=== PATIENT | male | born 1945 | race Caucasian/White ===

== ENCOUNTER 2018-04-20 17:27 | Inpatient (IN) | payer OTHER ==
--- NOTE | 2018-04-20 17:55 | EDPHY ---
HPI/HX/ROS/PE/MDM Narrative: CHIEF COMPLAINT: "I feel terrible," jaundice, ascites HPI: The patient is a 72 y/o male arriving with his complaining of abdominal discomfort and ascites onset today. History comes primarily from patient's . She reports he began to feel ill on March 27, 3.5 weeks ago. He was evaluated for this and ultimately MRI imaging at [facility] showed 2 liver masses. Specialists there suspected a bile duct tumor and performed an ERCP for further evaluation on Monday, 3 days ago. 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 They performed a sphincterotomy but not place a stent at that time. For the last six days he's appeared jaundiced to his and has had an intermittent fever. Today he began complaining of abdominal discomfort. She describes his abdomen as hard and distended. She called their specialist and was advised to go to the ED for further evaluation. She also mentions he's had difficulty eating for the past two weeks and was recently treated for sinusitis and otitis with Augmentin. REVIEW OF SYSTEMS: A comprehensive 10 system review of systems is otherwise negative aside from elements mentioned in the history of present illness. PMH: Liver masses, primary sclerosing cholangitis SOCIAL HISTORY: at bedside. Lives in [place]. Liver/GI specialists at [facility]. PHYSICAL EXAM: General:Patient is alert, in no acute distress. Mild jaundice. ENT: Scleral icterus, otherwise eyes are normal to inspection. ENT inspection normal. Neck: Normal inspection. Full range of motion. Respiratory:No respiratory distress. Breath sounds normal bilaterally. Cardiovascular: Regular rate and rhythm. Strong peripheral pulses. Normal cap refill. Abdomen:The abdomen is distended, nontender to palpation. There are no peritoneal signs. Back: Normal to inspection. No tenderness to palpation. Skin: Normal color. No rash. Warm and dry. Extremities: Normal appearance. Full range of motion. Neuro: Oriented x3. Normal motor function. Normal sensory function. ED Course: This is a 72 y/o male with recently diagnosed liver pathology likely primary sclerosing cholangitis and possible cholangiocarcinoma who presents with abdominal discomfort and distention that began today. He is jaundiced with scleral icterus on exam. His abdomen is distended, but nontender. Plan for IV, labs. LFTs significantly elevated. The 12 lead EKG was interpreted by myself. See hard copy and/or "tracemaster" electronic copy for interpretation. 190: Consulted with Dr. Larry, [facility] commissioner of officials at liver transplant center. He recommends admission either at our facility or there's depending on patient preference. Reassessed patient and discussed work up. He would like to be admitted here. Spoke with hospitalist service. Dr. Goff accepts admission. - Data Points Laboratory Results: Laboratory Results 04/20/18 17:47 04/20/18 17:47 04/20/18 04/20/18 17:47 17:47 WBC 13.25 10^3/uL H 10^3/uL (3.80-9.50) RBC 4.77 10^6/uL 10^6/uL (4.40-6.38) Hgb 14.3 g/dL g/dL (13.7-17.5) Hct 39.9 % L % (40.0-51.0) MCV 83.6 fL fL (81.5-99.8) MCH 30.0 pg pg (27.9-34.1) MCHC 35.8 g/dL g/dL (32.4-36.7) RDW 16.8 % H % (11.5-15.2) Plt Count 213 10^3/uL 10^3/uL (150-400) MPV 13.8 fL H fL (8.7-11.7) Neut % (Auto) 78.7 % H % (39.3-74.2) Lymph % (Auto) 10.3 % L % (15.0-45.0) Gaines % (Auto) 8.7 % % (4.5-13.0) Eos % (Auto) 1.2 % % (0.6-7.6) Baso % (Auto) 0.3 % % (0.3-1.7) Nucleat RBC Rel Count 0.0 % % (0.0-0.2) Absolute Neuts (auto) 10.42 10^3/uL H 10^3/uL (1.70-6.50) Absolute Lymphs (auto) 1.37 10^3/uL 10^3/uL (1.00-3.00) Absolute Monos (auto) 1.15 10^3/uL H 10^3/uL (0.30-0.80) Absolute Eos (auto) 0.16 10^3/uL 10^3/uL (0.03-0.40) Absolute Basos (auto) 0.04 10^3/uL 10^3/uL (0.02-0.10) Absolute Nucleated RBC 0.00 10^3/uL 10^3/uL (0-0.01) Immature Gran % 0.8 % % (0.0-1.1) Immature Gran # 0.11 10^3/uL H 10^3/uL (0.00-0.10) Sodium 134 mEq/L L mEq/L (135-145) Potassium 4.6 mEq/L mEq/L (3.5-5.2) Chloride 104 mEq/L mEq/L (97-110) Carbon Dioxide 21 mEq/l L mEq/l (22-31) Anion Gap 9 mEq/L mEq/L (6-14) BUN 28 mg/dL H mg/dL (7-23) Creatinine 1.3 mg/dL mg/dL (0.7-1.3) Estimated GFR 55 Glucose 107 mg/dL H mg/dL (70-100) Calcium 9.4 mg/dL mg/dL (8.5-10.4) Total Bilirubin 17.2 mg/dL H mg/dL (0.1-1.4) Conjugated Bilirubin 14.9 mg/dL H mg/dL (0.0-0.5) Unconjugated Bilirubin 2.3 mg/dL H mg/dL (0.0-1.1) Icterus Index 13 AST 355 IU/L H IU/L (17-59) ALT 262 IU/L H IU/L (21-72) Alkaline Phosphatase > 1500 IU/L H IU/L (38-126) Total Protein 6.5 g/dL g/dL (6.3-8.2) Albumin 2.9 g/dL L g/dL (3.5-5.0) General Time Seen by Provider: 04/20/18 17:47 Initial Vital Signs: Initial Vital Signs Temperature (C) 36.5 C 04/20/18 17:33 Heart Rate 87 04/20/18 17:33 Respiratory Rate 18 04/20/18 17:33 Blood Pressure 129/82 H 04/20/18 17:33 O2 Sat (%) 96 04/20/18 17:33 O2 Delivery Mode Room Air Allergies/Adverse Reactions: amoxicillin [From Augmentin] Allergy (Verified 04/20/18 17:31) clavulanic acid [From Augmentin] Allergy (Verified 04/20/18 17:31) meloxicam Allergy (Verified 04/20/18 17:31) niacin Allergy (Verified 04/20/18 17:31) Sulfa (Sulfonamide Antibiotics) Allergy (Verified 04/20/18 17:31) Home Medications: Medication Instructions Recorded Allopurinol 04/20/18 Aspirin 81mg (*) 04/20/18 Carvedilol 04/20/18 Lipitor 04/20/18 Prednisone 04/20/18 Testosterone 04/20/18 Departure - Departure Disposition: [facility] Inpatient Acute Clinical Impression: Jaundice Ascites Qualifiers: Ascites type: other type Qualified Code(s): R18.8 - Other ascites Condition: Fair Referrals: RAMON CORMIER [Other] - As per Instructions Report Scribed for: Chaz Recinos Report Scribed by: Nita Vallejo Date of Report: 04/20/18 Time of Report: 18:01 Physician Review and Approval Statement: Portions of this note were transcribed by an ED scribe. I personally performed the history, physical exam, and medical decision making; and confirm the accuracy of the information in the transcribed note.
[2018-04-20 19:04] LABS: PLATELET COUNT 213 10^3/uL (150-400)
[2018-04-20 19:41] LABS: INR 1.26 (0.83-1.16)
--- NOTE | 2018-04-20 20:45 | CPEKG ---
Test Reason : OPEN Blood Pressure : / mmHG Vent. Rate : 083 BPM Atrial Rate : 083 BPM P-R Int : 128 ms QRS Dur : 110 ms QT Int : 413 ms P-R-T Axes : 066 -24 -16 degrees QTc Int : 486 ms Sinus rhythm Multiform ventricular premature complexes Probable left atrial enlargement Inferior infarct, age indeterminate Confirmed by Chaz Recinos ([id number]) on 04/20/2018 8:45:03 PM Referred By: Chaz Recinos Confirmed By:Chaz Recinos
[2018-04-20] MEDS ORDERED: ACETAMINOPHEN 325 MG TAB PO PRN (21:01)
[2018-04-20] MEDS ORDERED: ONDANSETRON DISINTEGRATING 4 MG TAB PO PRN (21:01)
[2018-04-20] MEDS ORDERED: ONDANSETRON 4 MG/2 ML VIAL IVP PRN (21:01)
[2018-04-20] MEDS ORDERED: ERTAPENEM 1 GM in NS 100 ML IV SCH (21:15)
[2018-04-20] MEDS ORDERED: traZODone 50 MG TAB PO PRN (21:58)
--- NOTE | 2018-04-20 22:01 | GHP ---
DATE OF ADMISSION: 04/20/2018 CHIEF COMPLAINT: Possible ascites. HISTORY OF PRESENT ILLNESS: This is a 72-year-old male who was in his usual state of health until end of February. At that time, he was diagnosed with a sinus infection. He was started on Augment in. Sinus issues did not improve and then early March had some blood work, which did show elevated liver function tests. At that time, he was not jaundiced. He was sent to [facility] for further workup. This workup has all been done outpatient, included MRI on April 09, which showed liver lesions. He had increasing bilirubin, which about 10 days ago was at like 4. At that point, he developed more j aundice. 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 Biopsies were don e at that time. He then went home to [facility] where he lives. However the last day or so, he has espitia d increasing abdominal distention which he thinks may be ascites. His jaundice has also worsened. H phan has poor p.o. intake. He has been having fevers for the last 3 weeks to 100.4, and some chills. T his has not changed. He does not really have a lot in the way of abdominal pain, but does feel a lit tle bit uncomfortable in his abdomen. He has been sleeping more, but not particularly encephalopathi c. No bleeding. REVIEW OF SYSTEMS: A 10-point review of systems was obtained and negative. PAST MEDICAL HISTORY: 1. Coronary artery disease without stenting. 2. Hypertension, medication. 3. Gout. Interestingly, he had been on prednisone for gout prophylaxis for some time and has been w eaning that off currently. 4. Hypogonadism. MEDICATIONS: Reviewed. SOCIAL HISTORY: No smoking or alcohol. FAMILY HISTORY: Family history is only positive for coronary artery disease. PHYSICAL EXAMINATION: VITAL SIGNS: Afebrile, blood pressure is 135/75, heart rate 85, oxygen satura tion is 92% on room air. GENERAL: The patient is well developed, no apparent distress. HEENT: Sig nificantly icteric sclerae. NECK: Supple. No thyromegaly. LUNGS: Good effort. Clear to ausculta tion bilaterally. CARDIOVASCULAR: Regular rate and rhythm. No murmurs or gallops. ABDOMEN: Posit rojas bowel sounds, soft. There is a little bit of abdominal distention and enlarged liver, but I am n ot sure this is ascites. EXTREMITIES: No clubbing, cyanosis. Trace edema. SKIN: Without rash. D ry, intact. NEUROLOGIC: Alert and oriented x3. No asterixis. PSYCH: Normal affect. LABS: White count slightly elevated at 13, platelets are 14. INR 1.26. Sodium 134, total bilirubin is 17.2, conjugated 14.9, unconjugated 2.3, AST , ALT 262, and alkaline phosphatase over 1 500. ASSESSMENT: This is a 72-year-old male with worsening liver disease possibly due to primary sclerosi ng cholangitis and/or cholangiocarcinoma being seen at [facility] primarily presenting with increasing abdom inal distention, possible ascites. PLAN: 1. Possible ascites. Will get abdominal ultrasound today. 2. Worsening liver disease. This is pretty concerning. His bilirubin has gone up so high in the st week or 2. He did have an ERCP done 3 days ago. He does have elevated white blood cell count and some low-grade fevers. Will empirically cover with Invanz, however the best course of action is for him to be transferred to [facility] tomorrow. His could not take him today because she does not drive in the dark, and they do not want to go in an ambulance due to cost. Thus, we will keep overnight. I probably would not do any procedures even if he does have ascites. I will talk to [facility], GI or [facility] tomorrow and try to get him transferred at that time. I am going to check an am onia level and again, the ultrasound. 3. History of coronary artery disease. This is remote. I am going to hold Lipitor though because o f his elevated liver function tests. 4. History of gout. Will continue will low-dose prednisone. /[id number]/MODL
[2018-04-20] MEDS: CARVEDILOL 25 MG TAB PO SCH (23:29)
--- NOTE | 2018-04-21 00:56 | HOSPPROG ---
Hospitalist Progress Note Assessment/Plan: Hospitalist night float note Notified by RN regarding ultrasound result including portal vein thrombus. Discussed findings with the patient and he states no previous diagnosis of such. Further discussion with patient regarding recommendation to initiate anticoagulation with heparin drip in light of these new finding. Patient declines at this time would prefer to coordinate with [facility]. Patient states he has plans for his to drive him to [facility] tomorrow. At this time patient denies any current fevers, worsening abdominal pain, chest pain, shortness of breath and prefers to go back to sleep. Objective: Vital Signs Temp Pulse Resp BP Pulse Ox 37.1 C 88 14 112/61 94 04/20/18 23:45 04/20/18 23:45 04/20/18 23:45 04/20/18 23:45 04/20/18 23:45 PT 16.0 SEC (12.0-15.0) H 04/20/18 19:32 INR 1.26 (0.83-1.16) H 04/20/18 19:32 ICD10 Worksheet Patient Problems: Problems Problem Status Onset Ascites Acute Jaundice Acute
--- NOTE | 2018-04-21 06:50 | PDMN ---
Medical Necessity Medical necessity: Pt meets inpt criteria per MD order and [facility] M-[id number], Liver Disease Complications. 72 y/o presenting w/abd distention, abd discomfort, jaundice, and recent fevers, admitted w/ascites, worsening liver disease, and elevated WBC count and fever- concerning for infected ascites-Invanz started. Abd US shows cirrhosis w/L hepatic lobe mass and possible portal vein thrombus, and ascites. 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
[2018-04-21] MEDS ORDERED: predniSONE 1 MG TAB PO SCH (09:00)
[2018-04-21] MEDS: CARVEDILOL 25 MG TAB PO SCH (09:05)
--- NOTE | 2018-04-21 09:53 | PDDCSUM ---
Discharge Summary Discharge Summary: DISCHARGE DIAGNOSES: *Acute Onset of Ascites *Fever as outpatient; suspicion for possible SBP *Anorexia with early satiety *Acute Hepatic Failure with bilirubin 17 *Known liver lesions suspicious for malignancy *suspected bile duct lesion based on ERCP done elsewhere *Cirrrhosis PROCEDURES: Abdominal Ultrasound HOSPITAL COURSE SUMMARY: The patient has a history of jaundice and liver lesion identified radiologically. He has had an ERCP done by Dr Abreu at [facility] recently with biopsies which are currently pending. He came to our ER last night with abdominal distension he felt was ascites, and complains of early satiety and a very mild vague abdominal discomfort. He has had some ongoing low grade fever at home some a while as well. Upon admission the patient stated he was wishing to be admitted to [facility] in [place] with Dr Abreu's team, but he and his were not comfortable with driving at night and he did not want to go by ambulance. Here he has ascites on exam, slightly firm but no significant tenderness no rebound, highest fever so far 37.7. Labs show bilirubin up to 17 from recent ? 4. He is not septic. He did accept an abdominal US which shows ascites, a liver lesion suspicous for hepatoma, biliary dilation with poor visualization of distal common duct, cirrhosis. There is also suspicion for portal vein thrombus with "cavernous transformation" (this was not done with full Doppler imaging) The patient was prescribed antibiotics for suspicion of possible biliary infection or Spontaneous Bacterial Peritionitis. We discussed possible start of heparin with suspected thrombus but he declined, wishing to wait until he was under the care of physicians at [facility]. It does not sound to me like he has had any imaging of the brain. I did review with him that if there is a decision to start anticoagulation, it may be prudent to do brain imaging first as there is what could well be malignant disease present with both bile duct and liver lesions. The patient will likely need ERCP with multiple stent placements and possibly other procedures. Anatomically this seems like will be complicated and is recommended he have transfer to [facility] for this procedure. He is medically stable for transfer. I reviewed with Dr. Larry and Dr. Stark at [facility]. They are accepting him for transfer today we are arranging transfer at this time. PENDING TEST RESULTS: none MEDICATION CHANGES: addition of Ertapenam IV 1 gm daily, prn sleep medication FOLLOW-UP PLAN: Per the patients request we are arranging transfer to [facility] today His will drive him there. Greater than 35 minutes bedside and care coordination time today
--- NOTE | 2018-04-21 11:14 | PDIAF ---
- Diagnosis Diagnosis: Suspected SBP, suspect biliary infection, biliary obstruction, cirrhosis Code Status: Full Code - Medication Management Discharge Medications: electronically signed and located in the Home Medication List. - Orders Diet Recommendation: no restrictions on diet Diet Texture: Regular Texture Diet - Follow Up Care Current Providers and Referrals: RAMON CORMIER [Other] - As per Instructions
--- NOTE | 2018-04-21 11:29 | ASMTLACE ---
LACE Length of stay for Answers: Less than 1 day current admission Acuity / Level of Answers: No Care: Did the patient have an inpatient admission? Comorbidities - select Answers: Any tumor (including all that apply lymphoma or leukemia) Coronary Artery Disease Moderate or severe liver or renal disease # of Emergency department Answers: 1-2 visits in the last 6 months Score: 9 Date Signed: 04/21/2018 11:29 AM Electronically Signed By:Landy Gonzales RN
--- NOTE | 2018-04-21 11:33 | ASMTCMCOM ---
CM Note CM Note Notes: Patient to transfer to [facility] for care as he has stent placed there. RN aware, Emtala form filled out. Transport arranged for [facility] for transport at 1 pm. Family informed, case management available for any other needs. Plan: Transfer to [facility]. Date Signed: 04/21/2018 11:33 AM Electronically Signed By:Landy Gonzales RN
--- NOTE | 2018-04-21 11:39 | ASMTDCNOTE ---
Case Management Discharge Discharge Order Complete? Answers: Yes Patient to Obtain Answers: Other Notes: [facility] Medications Transportation Arranged Answers: [facility] will Pick (Date 04/21/2018 01:00 AM & Time) EMTALA Complete Answers: Yes Family Notified Answers: Yes Discharge Comments Notes: Patient to transfer to [facility]. Records copied. [facility] arranged. Family aware. Date Signed: 04/21/2018 11:38 AM Electronically Signed By:Landy Gonzales RN
[2018-04-21 12:19] VITALS: BP 101/55
== END 2018-04-21 12:36 | disposition short-term general hospital (02) | DRG 441 ==
LOC: F1N 20:47 → OBSVTOIN 21:06
PROVIDERS: ADMIT Internal Medicine; ATTEND Internal Medicine
DX: K72.00 Acute and subacute hepatic failure without coma (principal); R18.8 Other ascites; K74.60 Unspecified cirrhosis of liver; D49.0 Neoplasm of unspecified behavior of digestive system; R50.9 Fever, unspecified; I81 Portal vein thrombosis; I25.10 Atherosclerotic heart disease of native coronary artery without angina pectoris; I10 Essential (primary) hypertension; M10.9 Gout, unspecified
CPT/HCPCS: J1335; J7512